=== PATIENT | male | born 1965 | race African-American/Black ===

== ENCOUNTER 2019-02-03 05:56 | Inpatient (IN) | payer MEDICAID ==
[~2019-02-03] VITALS: Ht 185.4 cm; Wt 115.2 kg
[2019-02-03] VITALS (29 sets, daily range): BP systolic 103–157; BP diastolic 59–111
[2019-02-03] MEDS ORDERED: DIPHENHYDRAMINE 50MG/ML VIAL IV ONE (06:15)
[2019-02-03] MEDS ORDERED: FAMOTIDINE 20MG/2ML VIAL IV ONE (06:15)
[2019-02-03] MEDS ORDERED: METHYLPREDNISOLONE SOD SUCC 125 MG/2 ML VIAL IV ONE (06:15)
[2019-02-03] MEDS ORDERED: EPINEPHRINE 1:1000 1 MG/ML AMP IM ONE (06:15)
[2019-02-03 07:16] LABS: BASOPHILS % 1.2 % (0.0-2.0); EOSINOPHILS % 0.8 % (0.0-5.0); HEMOGLOBIN. 16.2 g/dL (14.0-18.0); LYMPHOCYTES % 32.5 % (20.0-50.0); MEAN CORPUSCULAR HEMOGLOBIN 33.4 pg (28.0-32.0); MEAN CORPUSCULAR VOLUME 100.7 fL (80.0-94.0); MEAN PLATELET VOLUME 8.3 fl (7.4-10.4); MONOCYTES % 8.5 % (2.0-8.0); PLATELET 419 x1000/uL (130-400); RED BLOOD CELL COUNT 4.87 mill/uL (4.7-6.1); RED CELL DISTRIBUTION WIDTH 13.5 % (11.6-14.6)
[2019-02-03 07:42] LABS: CHLORIDE 109 mEq/L (98-107)
[2019-02-03 07:43] LABS: INR 0.9; PROTHROMBIN TIME 9.3 sec (9.6-11.0)
[2019-02-03] MEDS ORDERED: KETAMINE HCL 50 MG/ML 10ML IV ONE (08:30)
[2019-02-03] MEDS ORDERED: SUCCINYLCHOLINE CHLORIDE 200MG/10ML IV ONE ×2 (08:30→08:51)
[2019-02-03] MEDS ORDERED: FENTANYL CITRATE/PF 500 MCG in SODIUM CHLORIDE 0.9% 40 ML IV STA (08:44)
[2019-02-03] MEDS ORDERED: MIDAZOLAM HCL 50 MG in DEXTROSE 5% WATER 40 ML IV ONE (08:45)
[2019-02-03] MEDS ORDERED: LIDOCAINE HCL/PF 1% 2ML VIAL INFIL ONE (08:45)
[2019-02-03] MEDS ORDERED: ETOMIDATE 2MG/ML 10ML VIAL IV ONE (08:51)
[2019-02-03] MEDS ORDERED: FENTANYL CITRATE/PF 500 MCG in SODIUM CHLORIDE 0.9% 40 ML IV SCH (09:00)
[2019-02-03] MEDS ORDERED: MIDAZOLAM HCL 50 MG in DEXTROSE 5% WATER 40 ML IV SCH ×4 (09:00)
[2019-02-03] MEDS ORDERED: MIDAZOLAM HCL 2 MG/2 ML VIAL IV ONE (09:00)
[2019-02-03] MEDS ORDERED: FENTANYL CITRATE/PF 50MCG/ML 2ML VIAL ONE (09:14)
[2019-02-03] MEDS ORDERED: FENTANYL CITRATE/PF 50MCG/ML 2ML VIAL IV ONE (09:15)
[2019-02-03] MEDS ORDERED: ACETAMINOPHEN 650MG SUPP PR PRN (09:45)
[2019-02-03] MEDS ORDERED: DOCUSATE SODIUM 100MG CAPSULE PO PRN (09:45)
[2019-02-03] MEDS ORDERED: MAGNESIUM/ALUMINUM HYDROXIDE/SIMETHICONE 30ML UDC PO PRN (09:45)
[2019-02-03] MEDS ORDERED: ONDANSETRON HCL 4MG/2ML INJ IV PRN (09:45)
[2019-02-03] MEDS ORDERED: GUAIFENESIN 200MG/10ML SUGAR FREE UDC PO PRN (09:45)
[2019-02-03 09:52] LABS: BG BASE EXCESS -3.9 mmol/L (-2.0-2.0); BG CARBOXYHEMOGLOBIN 1.4 % (0.5-1.5); BG DEOXYHEMOGLOBIN 0.4 % (0.0-5.0); BG FRACTION INSPIRED OXYGEN 100; BG HCO3 ACT 22.2 mmol/L (22.0-26.0); BG METHEMOGLOBIN 0.3 % (0.0-1.5); BG OXYGEN SATURATION 99.6 % (92.0-98.5); BG OXYHEMOGLOBIN 97.9 % (94.0-97.0); BG PCO2 43.6 mmHg (35.0-45.0); BG PH 7.324 (7.350-7.450); BG PO2 476.6 mmHg (75.0-100.0); BG SAMPLE SITE LEFT BRACHIAL; BG TIDAL VOLUME(mL) 500 mL; BG TOTAL HEMOGLOBIN 16.1 g/dL (12.0-18.0); BG VENT MODE VENT - A/C; BG VENT RATE 12 set
[2019-02-03 10:41] LABS: PHOSPHORUS 3.6 mg/dL (2.5-4.9)
[2019-02-03] MEDS ORDERED: PROPOFOL 10MG/ML 100ML 100 ML IV ONE (11:00)
[2019-02-03] MEDS ORDERED: IPRATROPIUM/ALBUTEROL 0.5-3(2.5)MG/3ML NEB HHN PRN (11:00)
[2019-02-03] MEDS ORDERED: ENOXAPARIN 30MG/0.3ML SYR SUBCUT SCH (12:30)
[2019-02-03] MEDS: METHYLPREDNISOLONE SOD SUCC 125 MG/2 ML VIAL IV SCH ×2 (14:13→21:20)
[2019-02-03] MEDS: DIPHENHYDRAMINE 50MG/ML VIAL IV SCH ×2 (14:22→18:17)
[2019-02-03] MEDS: ENOXAPARIN 30MG/0.3ML SYR SUBCUT SCH ×2 (14:25→21:21)
[2019-02-03 15:25] LABS: CREATINE KINASE MB FRACTION 1.6 ng/mL (0.5-3.6)
[2019-02-03] MEDS: PROPOFOL 10MG/ML 100ML 100 ML IV PRN ×5 (16:01→23:56)
[2019-02-03] MEDS: IPRATROPIUM/ALBUTEROL 0.5-3(2.5)MG/3ML NEB HHN SCH (20:43)
[2019-02-03] MEDS: FAMOTIDINE 20MG/2ML VIAL IV SCH (21:22)
[2019-02-03 23:20] LABS: BG BASE EXCESS -2.1 mmol/L (-2.0-2.0); BG CARBOXYHEMOGLOBIN 0.3 % (0.5-1.5); BG DEOXYHEMOGLOBIN 4.9 % (0.0-5.0); BG FRACTION INSPIRED OXYGEN 40; BG HCO3 ACT 22.8 mmol/L (22.0-26.0); BG METHEMOGLOBIN 0.2 % (0.0-1.5); BG OXYGEN SATURATION 95.1 % (92.0-98.5); BG OXYHEMOGLOBIN 94.6 % (94.0-97.0); BG PCO2 39.7 mmHg (35.0-45.0); BG PH 7.377 (7.350-7.450); BG PO2 76.9 mmHg (75.0-100.0); BG SAMPLE SITE RIGHT RADIAL; BG TIDAL VOLUME(mL) 500 mL; BG VENT MODE VENT - A/C; BG VENT RATE 12 set
[2019-02-04] VITALS (63 sets, daily range): BP systolic 104–141; BP diastolic 61–99
[2019-02-04] MEDS: LORAZEPAM 2MG/ML CPJ IV PRN ×3 (00:10→12:55)
[2019-02-04] MEDS: DIPHENHYDRAMINE 50MG/ML VIAL IV SCH ×4 (00:39→17:40)
[2019-02-04 00:41] LABS: CREATINE KINASE 82 IU/L (39-308)
[2019-02-04] MEDS: FENTANYL CITRATE/PF 500 MCG in SODIUM CHLORIDE 0.9% 40 ML IV PRN ×4 (00:41→21:56)
[2019-02-04 00:42] LABS: CREATINE KINASE MB FRACTION < 1.0 ng/mL (0.5-3.6)
[2019-02-04] MEDS ORDERED: DEXTROSE 50% WATER 50ML SYRINGE IV PRN ×3 (01:15→23:00)
[2019-02-04] MEDS: PROPOFOL 10MG/ML 100ML 100 ML IV PRN ×4 (02:22→09:20)
[2019-02-04] MEDS: IPRATROPIUM/ALBUTEROL 0.5-3(2.5)MG/3ML NEB HHN SCH ×4 (02:22→19:43)
[2019-02-04 05:40] LABS: BASOPHILS % 0.5 % (0.0-2.0); HEMATOCRIT. 42.9 % (42.0-52.0); HEMOGLOBIN. 14.4 g/dL (14.0-18.0); LYMPHOCYTES % 10.2 % (20.0-50.0); MEAN CORPUSCULAR HEMOGLOBIN 33.9 pg (28.0-32.0); MEAN CORPUSCULAR VOLUME 100.9 fL (80.0-94.0); MEAN PLATELET VOLUME 8.1 fl (7.4-10.4); MONOCYTES % 4.4 % (2.0-8.0); NEUTROPHILS % 84.9 % (40.0-76.0); PLATELET 370 x1000/uL (130-400); RED BLOOD CELL COUNT 4.26 mill/uL (4.7-6.1); RED CELL DISTRIBUTION WIDTH 13.5 % (11.6-14.6)
[2019-02-04] MEDS ORDERED: BLOOD SUGAR DIAGNOSTIC STRIP TEST SCH ×2 (06:00)
[2019-02-04] MEDS: METHYLPREDNISOLONE SOD SUCC 125 MG/2 ML VIAL IV SCH ×3 (06:06→21:29)
[2019-02-04 06:18] LABS: CHLORIDE 108 mEq/L (98-107)
[2019-02-04 06:27] LABS: LDL CHOLESTEROL 125 mg/dL (5-100)
[2019-02-04 06:29] LABS: HDL CHOLESTEROL 52 mg/dL (40-59)
[2019-02-04 07:09] LABS: BG BASE EXCESS -0.6 mmol/L (-2.0-2.0); BG DEOXYHEMOGLOBIN 5.4 % (0.0-5.0); BG HCO3 ACT 25.2 mmol/L (22.0-26.0); BG METHEMOGLOBIN 0.2 % (0.0-1.5); BG OXYGEN SATURATION 94.5 % (92.0-98.5); BG OXYHEMOGLOBIN 93.4 % (94.0-97.0); BG PCO2 45.9 mmHg (35.0-45.0); BG PH 7.358 (7.350-7.450); BG PO2 73.9 mmHg (75.0-100.0); BG SAMPLE SITE RIGHT RADIAL; BG TIDAL VOLUME(mL) 500 mL; BG TOTAL HEMOGLOBIN 14.8 g/dL (12.0-18.0); BG VENT MODE VENT - A/C; BG VENT RATE 12 set
[2019-02-04] MEDS ORDERED: INSULIN LISPRO 100 UNITS/ML SUBCUT SCH ×2 (08:20)
[2019-02-04] MEDS: FAMOTIDINE 20MG/2ML VIAL IV SCH ×2 (08:43→21:29)
[2019-02-04] MEDS: ENOXAPARIN 30MG/0.3ML SYR SUBCUT SCH ×2 (08:43→21:29)
[2019-02-04] MEDS: MIDAZOLAM HCL 100 MG in DEXT 5% WATER 80 ML IV PRN (15:06)
[2019-02-05] VITALS (106 sets, daily range): BP systolic 75–178; BP diastolic 58–130
[2019-02-05] MEDS: DIPHENHYDRAMINE 50MG/ML VIAL IV SCH ×3 (00:15→12:07)
[2019-02-05] MEDS: LORAZEPAM 2MG/ML CPJ IV PRN ×9 (00:15→23:27)
[2019-02-05] MEDS: BLOOD SUGAR DIAGNOSTIC STRIP TEST SCH ×4 (00:32→17:24)
[2019-02-05] MEDS: MIDAZOLAM HCL 100 MG in DEXT 5% WATER 80 ML IV PRN ×3 (01:29→18:53)
[2019-02-05] MEDS: FENTANYL CITRATE/PF 500 MCG in SODIUM CHLORIDE 0.9% 40 ML IV PRN ×4 (03:29→22:20)
[2019-02-05] MEDS: IPRATROPIUM/ALBUTEROL 0.5-3(2.5)MG/3ML NEB HHN SCH ×5 (03:37→20:17)
[2019-02-05] MEDS: METHYLPREDNISOLONE SOD SUCC 125 MG/2 ML VIAL IV SCH ×3 (05:47→22:50)
[2019-02-05 05:53] LABS: BASOPHILS % 0.1 % (0.0-2.0); EOSINOPHILS % 0.2 % (0.0-5.0); HEMOGLOBIN. 14.4 g/dL (14.0-18.0); LYMPHOCYTES % 8.6 % (20.0-50.0); MEAN CORPUSCULAR HEMOGLOBIN 34.4 pg (28.0-32.0); MEAN CORPUSCULAR VOLUME 100.7 fL (80.0-94.0); MEAN PLATELET VOLUME 8.3 fl (7.4-10.4); MONOCYTES % 9.8 % (2.0-8.0); NEUTROPHILS % 81.3 % (40.0-76.0); PLATELET 390 x1000/uL (130-400); RED BLOOD CELL COUNT 4.17 mill/uL (4.7-6.1); RED CELL DISTRIBUTION WIDTH 13.6 % (11.6-14.6)
[2019-02-05 05:56] LABS: CHLORIDE 106 mEq/L (98-107)
[2019-02-05] MEDS: INSULIN LISPRO 100 UNITS/ML SUBCUT SCH ×4 (06:00→17:24)
[2019-02-05] MEDS: FAMOTIDINE 20MG/2ML VIAL IV SCH ×2 (08:39→22:50)
[2019-02-05] MEDS: ENOXAPARIN 30MG/0.3ML SYR SUBCUT SCH ×2 (08:39→22:50)
[2019-02-05] MEDS: ACETYLCYSTEINE 100MG/ML 10% VIAL 4ML INH SCH (11:22)
[2019-02-05] MEDS ORDERED: EPINEPHRINE 1:1000 1 MG/ML AMP INJ NR (14:00)
[2019-02-05] MEDS: DIPHENHYDRAMINE 50MG/ML VIAL IV PRN ×2 (19:01→23:26)
[2019-02-06] VITALS (64 sets, daily range): BP systolic 124–213; BP diastolic 75–132
[2019-02-06] MEDS: INSULIN LISPRO 100 UNITS/ML SUBCUT SCH ×5 (00:30→23:12)
[2019-02-06] MEDS: BLOOD SUGAR DIAGNOSTIC STRIP TEST SCH ×5 (00:30→23:11)
[2019-02-06] MEDS: ACETYLCYSTEINE 100MG/ML 10% VIAL 4ML INH SCH ×3 (00:46→15:50)
[2019-02-06] MEDS: IPRATROPIUM/ALBUTEROL 0.5-3(2.5)MG/3ML NEB HHN SCH ×6 (00:46→20:01)
[2019-02-06] MEDS: FENTANYL CITRATE/PF 500 MCG in SODIUM CHLORIDE 0.9% 40 ML IV PRN ×2 (03:42→08:13)
[2019-02-06] MEDS: DIPHENHYDRAMINE 50MG/ML VIAL IV PRN ×2 (04:11→23:52)
[2019-02-06] MEDS: LORAZEPAM 2MG/ML CPJ IV PRN ×7 (04:11→23:11)
[2019-02-06] MEDS: MIDAZOLAM HCL 100 MG in DEXT 5% WATER 80 ML IV PRN (05:56)
[2019-02-06] MEDS: METHYLPREDNISOLONE SOD SUCC 125 MG/2 ML VIAL IV SCH ×3 (06:09→21:11)
[2019-02-06 06:10] LABS: BASOPHILS % 0.1 % (0.0-2.0); HEMATOCRIT. 42.4 % (42.0-52.0); HEMOGLOBIN. 14.3 g/dL (14.0-18.0); LYMPHOCYTES % 8.3 % (20.0-50.0); MEAN CORPUSCULAR HEMOGLOBIN 34.1 pg (28.0-32.0); MEAN CORPUSCULAR VOLUME 101.1 fL (80.0-94.0); MEAN PLATELET VOLUME 8.6 fl (7.4-10.4); MONOCYTES % 8.8 % (2.0-8.0); NEUTROPHILS % 82.8 % (40.0-76.0); PLATELET 398 x1000/uL (130-400)
[2019-02-06 06:35] LABS: CHLORIDE 104 mEq/L (98-107)
[2019-02-06 07:29] LABS: BG BASE EXCESS 4.6 mmol/L (-2.0-2.0); BG CARBOXYHEMOGLOBIN 1.2 % (0.5-1.5); BG DEOXYHEMOGLOBIN 5.9 % (0.0-5.0); BG FRACTION INSPIRED OXYGEN 60; BG HCO3 ACT 29.7 mmol/L (22.0-26.0); BG METHEMOGLOBIN 0.1 % (0.0-1.5); BG OXYHEMOGLOBIN 92.8 % (94.0-97.0); BG PCO2 45.3 mmHg (35.0-45.0); BG PH 7.434 (7.350-7.450); BG PO2 68.1 mmHg (75.0-100.0); BG SAMPLE SITE RIGHT RADIAL; BG TIDAL VOLUME(mL) 600 mL; BG VENT MODE VENT - A/C; BG VENT RATE 12 set
[2019-02-06] MEDS: FAMOTIDINE 20MG/2ML VIAL IV SCH ×2 (08:11→21:11)
[2019-02-06] MEDS: ENOXAPARIN 30MG/0.3ML SYR SUBCUT SCH ×2 (08:12→21:11)
[2019-02-06 11:09] LABS: BG BASE EXCESS 5.3 mmol/L (-2.0-2.0); BG CARBOXYHEMOGLOBIN 0.6 % (0.5-1.5); BG DEOXYHEMOGLOBIN 9.4 % (0.0-5.0); BG FRACTION INSPIRED OXYGEN 50; BG HCO3 ACT 30.2 mmol/L (22.0-26.0); BG METHEMOGLOBIN 0.2 % (0.0-1.5); BG OXYGEN SATURATION 90.5 % (92.0-98.5); BG OXYHEMOGLOBIN 89.8 % (94.0-97.0); BG PCO2 44.9 mmHg (35.0-45.0); BG PH 7.445 (7.350-7.450); BG PO2 59.7 mmHg (75.0-100.0); BG PRESSURE SUPPORT 8; BG SAMPLE SITE RIGHT RADIAL; BG TOTAL HEMOGLOBIN 15.3 g/dL (12.0-18.0); BG VENT MODE VENT - CPAP
[2019-02-06] MEDS ORDERED: RACEPINEPHRINE 2.25% 0.5ML NEB VIAL HHN PRN (11:45)
[2019-02-06] MEDS ORDERED: RACEPINEPHRINE 2.25% 0.5ML NEB VIAL HHN ONE (13:00)
[2019-02-06 15:46] LABS: BG BASE EXCESS 5.8 mmol/L (-2.0-2.0); BG BILEVEL POS AIRWAY PRESSURE 15/5; BG CARBOXYHEMOGLOBIN 0.8 % (0.5-1.5); BG DEOXYHEMOGLOBIN 2.6 % (0.0-5.0); BG FRACTION INSPIRED OXYGEN 70; BG HCO3 ACT 29.5 mmol/L (22.0-26.0); BG METHEMOGLOBIN 0.3 % (0.0-1.5); BG OXYGEN SATURATION 97.4 % (92.0-98.5); BG OXYHEMOGLOBIN 96.3 % (94.0-97.0); BG PCO2 39.7 mmHg (35.0-45.0); BG PH 7.489 (7.350-7.450); BG PO2 93.3 mmHg (75.0-100.0); BG SAMPLE SITE RIGHT BRACHIAL; BG TOTAL HEMOGLOBIN 15.6 g/dL (12.0-18.0); BG VENT MODE MASK - BIPAP
[2019-02-06] MEDS ORDERED: HALOPERIDOL 1MG TABLET PO PRN (16:00)
[2019-02-06] MEDS ORDERED: LORAZEPAM 2MG/ML CPJ ONE (16:03)
[2019-02-06] MEDS ORDERED: MORPHINE SULFATE 4 MG/ML CPJ (NOT FOR IM USE) IV ONE (16:04)
[2019-02-06] MEDS ORDERED: HALOPERIDOL LACTATE 5MG/ML VIAL IM PRN (16:15)
[2019-02-06] MEDS ORDERED: LORAZEPAM 2MG/ML CPJ IV NR (16:18)
[2019-02-06] MEDS ORDERED: HALOPERIDOL LACTATE 5MG/ML VIAL IM NR (16:20)
[2019-02-07] VITALS (19 sets, daily range): BP systolic 121–175; BP diastolic 79–121
[2019-02-07] MEDS: IPRATROPIUM/ALBUTEROL 0.5-3(2.5)MG/3ML NEB HHN SCH ×6 (00:01→20:30)
[2019-02-07] MEDS: ACETYLCYSTEINE 100MG/ML 10% VIAL 4ML INH SCH ×4 (00:02→16:37)
[2019-02-07] MEDS: LORAZEPAM 2MG/ML CPJ IV PRN ×3 (00:54→05:28)
[2019-02-07 05:19] LABS: BASOPHILS % 0.2 % (0.0-2.0); HEMATOCRIT. 44.2 % (42.0-52.0); HEMOGLOBIN. 14.9 g/dL (14.0-18.0); LYMPHOCYTES % 9.2 % (20.0-50.0); MEAN CORPUSCULAR HEMOGLOBIN 33.7 pg (28.0-32.0); MEAN CORPUSCULAR VOLUME 99.8 fL (80.0-94.0); MEAN PLATELET VOLUME 8.4 fl (7.4-10.4); NEUTROPHILS % 79.6 % (40.0-76.0); PLATELET 403 x1000/uL (130-400); RED BLOOD CELL COUNT 4.43 mill/uL (4.7-6.1); RED CELL DISTRIBUTION WIDTH 13.1 % (11.6-14.6)
[2019-02-07 05:26] LABS: CHLORIDE 104 mEq/L (98-107)
[2019-02-07] MEDS: METHYLPREDNISOLONE SOD SUCC 125 MG/2 ML VIAL IV SCH ×3 (05:32→21:02)
[2019-02-07] MEDS: INSULIN LISPRO 100 UNITS/ML SUBCUT SCH ×3 (05:59→18:00)
[2019-02-07] MEDS: BLOOD SUGAR DIAGNOSTIC STRIP TEST SCH ×3 (05:59→18:00)
[2019-02-07] MEDS: CLONIDINE 0.1MG TABLET PO PRN ×2 (08:04→15:02)
[2019-02-07] MEDS: FAMOTIDINE 20MG/2ML VIAL IV SCH ×2 (08:04→20:57)
[2019-02-07] MEDS: ENOXAPARIN 30MG/0.3ML SYR SUBCUT SCH ×2 (08:04→20:58)
[2019-02-07 09:13] LABS: BG BASE EXCESS 5.9 mmol/L (-2.0-2.0); BG DEOXYHEMOGLOBIN 7.8 % (0.0-5.0); BG FRACTION INSPIRED OXYGEN 40; BG HCO3 ACT 29.3 mmol/L (22.0-26.0); BG OXYGEN SATURATION 92.1 % (92.0-98.5); BG OXYHEMOGLOBIN 91.2 % (94.0-97.0); BG PCO2 38.4 mmHg (35.0-45.0); BG PH 7.501 (7.350-7.450); BG SAMPLE SITE RIGHT RADIAL; BG TOTAL HEMOGLOBIN 15.6 g/dL (12.0-18.0); BG VENT MODE NASAL CANNULA
[2019-02-07 10:11] LABS: C1 ESTERASE INHIBITOR 46 mg/dL (21-39)
[2019-02-07 13:15] LABS: C1 ESTERASE INHIBITOR FUNCTNL > 92 (.)
[2019-02-08] VITALS (8 sets, daily range): BP systolic 127–144; BP diastolic 82–91
[2019-02-08] MEDS: BLOOD SUGAR DIAGNOSTIC STRIP TEST SCH ×2 (00:55→05:32)
[2019-02-08] MEDS: METHYLPREDNISOLONE SOD SUCC 125 MG/2 ML VIAL IV SCH ×2 (05:28→14:13)
[2019-02-08] MEDS: INSULIN LISPRO 100 UNITS/ML SUBCUT SCH ×2 (05:32)
[2019-02-08 06:41] LABS: CHLORIDE 100 mEq/L (98-107)
[2019-02-08 06:50] LABS: BASOPHILS % 0.2 % (0.0-2.0); HEMATOCRIT. 42.8 % (42.0-52.0); HEMOGLOBIN. 14.4 g/dL (14.0-18.0); LYMPHOCYTES % 11.7 % (20.0-50.0); MEAN CORPUSCULAR HEMOGLOBIN 33.6 pg (28.0-32.0); MEAN CORPUSCULAR VOLUME 100.3 fL (80.0-94.0); MEAN PLATELET VOLUME 8.8 fl (7.4-10.4); MONOCYTES % 7.8 % (2.0-8.0); NEUTROPHILS % 80.3 % (40.0-76.0); PLATELET 415 x1000/uL (130-400); RED BLOOD CELL COUNT 4.27 mill/uL (4.7-6.1); RED CELL DISTRIBUTION WIDTH 13.1 % (11.6-14.6)
[2019-02-08] MEDS: FAMOTIDINE 20MG/2ML VIAL IV SCH (09:38)
[2019-02-08] MEDS: ENOXAPARIN 30MG/0.3ML SYR SUBCUT SCH (09:38)
[2019-02-08] MEDS: IPRATROPIUM/ALBUTEROL 0.5-3(2.5)MG/3ML NEB HHN SCH ×2 (12:44)
[2019-02-08] MEDS ORDERED: PNEUMOCOCCAL 23-VAL P-SAC VAC 0.5 ML IM ONE (14:00)
== END 2019-02-08 14:41 | disposition home or self-care (01) | DRG 133 ==
LOC: ER 05:56 → CVICU 09:14 → EDBEDREQ 09:20 → ENRESERV 09:50 → 5EST 02-07 12:20
PROVIDERS: ADMIT Internal Medicine; ATTEND Internal Medicine
PROC: 5A1945Z Respiratory Ventilation, 24-96 Consecutive Hours (ICD-10-PCS; principal; 2019-02-03)
PROC: 30233P1 Transfusion of Nonautologous Frozen Red Cells into Peripheral Vein, Percutaneous Approach (ICD-10-PCS; 2019-02-03)
PROC: 0BH17EZ Insertion of Endotracheal Airway into Trachea, Via Natural or Artificial Opening (ICD-10-PCS; 2019-02-03)
PROC: 5A09357 Assistance with Respiratory Ventilation, Less than 24 Consecutive Hours, Continuous Positive Airway Pressure (ICD-10-PCS; 2019-02-06)
DX: J96.00 Acute respiratory failure, unspecified whether with hypoxia or hypercapnia (principal); R13.10 Dysphagia, unspecified; T78.3XXA Angioneurotic edema, initial encounter; I10 Essential (primary) hypertension; E78.5 Hyperlipidemia, unspecified; E11.9 Type 2 diabetes mellitus without complications; E78.00 Pure hypercholesterolemia, unspecified; F17.210 Nicotine dependence, cigarettes, uncomplicated; M10.9 Gout, unspecified; E78.1 Pure hyperglyceridemia; Z78.1 Physical restraint status
CPT/HCPCS: 31500; 36415; 36600; 71045; 80048; 80061; 82375; 82550; 82553; 82805; 82962; 83036; 83735; 84100; 84443; 86161; 86850; 86900; 86927; 87070; 90732; 92610; 93970; 94003; 94640; 94660; 96365; 96368; 96372; 96375; 97162; 97166; 99291; J0330; J1200; J1630; J1650; J2060; J2250; J2270; J2704; J2930; J3010; J3490; J7040; J7050; J7060; J7608; J7620; P9017; A4315

== ENCOUNTER 2019-03-09 18:04 | Emergency (ER) | payer MEDICAID ==
[~2019-03-09] VITALS: Ht 185.4 cm; Wt 118.0 kg
[2019-03-09] MEDS ORDERED: FAMOTIDINE 20MG/2ML VIAL IV ONE (19:30)
[2019-03-09] MEDS ORDERED: METHYLPREDNISOLONE SOD SUCC 125 MG/2 ML VIAL IV ONE (19:30)
[2019-03-09] MEDS ORDERED: DIPHENHYDRAMINE 50MG/ML VIAL IV ONE (19:30)
[2019-03-09] MEDS ORDERED: TRANEXAMIC ACID 1,000 MG/10 ML IV ONE (19:30)
[2019-03-09] MEDS ORDERED: TRANEXAMIC ACID 1,000 MG in SODIUM CHLORIDE 0.9% 100 ML IV NR (20:45)
[2019-03-09 22:16] VITALS: BP 139/89
== END 2019-03-09 22:19 | disposition home or self-care (01) ==
LOC: ER 19:13
DX: T78.3XXA Angioneurotic edema, initial encounter (principal); T46.4X5A Adverse effect of angiotensin-converting-enzyme inhibitors, initial encounter; I10 Essential (primary) hypertension; F17.200 Nicotine dependence, unspecified, uncomplicated; F12.10 Cannabis abuse, uncomplicated; Z88.8 Allergy status to other drugs, medicaments and biological substances
CPT/HCPCS: 93005; 96365; 96375; 99291; J1200; J2930; J3490; J7050

== ENCOUNTER 2019-03-10 07:27 | Emergency (ER) | payer MEDICAID ==
[~2019-03-10] VITALS: Ht 185.4 cm; Wt 118.0 kg
[2019-03-10] MEDS ORDERED: FAMOTIDINE 20MG/2ML VIAL IV ONE (08:00)
[2019-03-10] MEDS ORDERED: METHYLPREDNISOLONE SOD SUCC 125 MG/2 ML VIAL IV ONE (08:00)
[2019-03-10] MEDS ORDERED: DIPHENHYDRAMINE 50MG/ML VIAL IV ONE (08:00)
[2019-03-10 10:01] VITALS: BP 142/96
== END 2019-03-10 10:05 | disposition home or self-care (01) ==
LOC: ER 07:27
DX: T78.3XXA Angioneurotic edema, initial encounter (principal); X58.XXXA Exposure to other specified factors, initial encounter; I10 Essential (primary) hypertension; F17.200 Nicotine dependence, unspecified, uncomplicated
CPT/HCPCS: 96374; 96375; 99283; J1200; J2930; J3490

== ENCOUNTER 2019-10-31 02:08 | Emergency (ER) | payer MEDICAID ==
[~2019-10-31] VITALS: Ht 185.4 cm; Wt 118.0 kg
[2019-10-31] MEDS ORDERED: KETOROLAC 60MG/2ML VIAL IM STA (04:19)
[2019-10-31] MEDS ORDERED: METHYLPREDNISOLONE SOD SUCC 125 MG/2 ML VIAL IM STA (04:19)
[2019-10-31 05:24] VITALS: BP 135/88
== END 2019-10-31 05:42 | disposition home or self-care (01) ==
LOC: ER 02:08
DX: M25.532 Pain in left wrist (principal); M10.9 Gout, unspecified; Z88.8 Allergy status to other drugs, medicaments and biological substances
CPT/HCPCS: 73110; 96372; 99283; J1885; J2930

== ENCOUNTER 2022-09-30 13:55 | Emergency (ER) | payer MEDICAID ==
[~2022-09-30] VITALS: Ht 172.7 cm; Wt 90.0 kg
[2022-09-30 14:23] VITALS: BP 147/99
[2022-09-30 18:40] LABS: BASOPHILS % 0.6 % (0.0-2.0); HEMATOCRIT. 48.5 % (42.0-52.0); HEMOGLOBIN. 16.8 g/dL (14.0-18.0); MEAN CORPUSCULAR HEMOGLOBIN 34.4 pg (28.0-32.0); MEAN CORPUSCULAR VOLUME 99.5 fL (80.0-94.0); MEAN PLATELET VOLUME 7.2 fl (7.4-10.4); MONOCYTES % 10.7 % (2.0-8.0); NEUTROPHILS % 53.7 % (40.0-76.0); PLATELET 419 x1000/uL (130-400); RED BLOOD CELL COUNT 4.88 mill/uL (4.7-6.1); RED CELL DISTRIBUTION WIDTH 13.6 % (11.6-14.6)
[2022-09-30] MEDS ORDERED: IBUPROFEN 600MG TABLET PO ONE (18:45)
[2022-09-30 18:50] LABS: INR 0.9; PROTHROMBIN TIME 9.9 sec (9.6-11.0)
[2022-09-30 18:53] LABS: CHLORIDE 100 mEq/L (98-107)
[2022-09-30] MEDS ORDERED: POTASSIUM CHLORIDE 20MEQ TABLET SR PO ONE (19:30)
[2022-09-30] MEDS ORDERED: IBUP-2029 MT (21:13)
[2022-09-30] MEDS ORDERED: IBUPROFEN 600MG TABLET PO NR (21:30)
[2022-09-30] MEDS ORDERED: POTASSIUM CHLORIDE 20MEQ TABLET SR PO NR (21:30)
== END 2022-09-30 21:29 | disposition home or self-care (01) ==
LOC: ER 13:55
DX: R60.0 Localized edema (principal); E87.6 Hypokalemia; I10 Essential (primary) hypertension
CPT/HCPCS: 36415; 80053; 85025; 93970; 99284

== ENCOUNTER 2023-12-04 12:34 | Emergency (ER) | payer OTHER ==
[~2023-12-04] VITALS: Ht 182.9 cm; Wt 105.0 kg
[~2023-12-04 12:34] MED LIST: IBUP-2029 MT
[2023-12-04 12:45] VITALS: O2SAT 94
[2023-12-04] MEDS: PREDNISONE 20MG TABLET PO ONE (13:21)
[2023-12-04] MEDS: IBUPROFEN 400MG TABLET PO NR (13:21)
[2023-12-04] MEDS: IBUPROFEN 800MG TABLET PO ONE (13:22)
[2023-12-04] MEDS ORDERED: COLC0.6C3 MT (14:43)
[2023-12-04] MEDS ORDERED: TOPUD MT (14:43)
[2023-12-04] MEDS ORDERED: IBUP-1525 MT (14:43)
[2023-12-04] MEDS ORDERED: P50 MT (14:43)
[2023-12-04 16:04] VITALS: BP 122/67; PULSE 107; RESP 18; TEMP 98.6
== END 2023-12-04 16:05 | disposition home or self-care (01) ==
LOC: ER 12:34
DX: M10.9 Gout, unspecified (principal); I10 Essential (primary) hypertension; Z88.8 Allergy status to other drugs, medicaments and biological substances
CPT/HCPCS: 99283; J7512; Z7610

== ENCOUNTER 2024-08-13 02:57 | Emergency (ER) | payer OTHER ==
[~2024-08-13] VITALS: Ht 170.2 cm; Wt 114.0 kg
[~2024-08-13 02:57] MED LIST changes: +ALLO100T MT; +AMLO10TA4 MT; +AMLO10TA4 PO; +COLC0.6C3 MT; +IBUP-1525 MT; +P50 MT; +TOPUD MT
[2024-08-13 03:12] VITALS: O2SAT 96
[2024-08-13] MEDS: HYDROCODONE/ACETAMINOPHEN 5/325MG TABLET PO ONE (04:15)
[2024-08-13] MEDS: KETOROLAC 30MG/ML VIAL IM ONE (04:15)
[2024-08-13 05:10] VITALS: BP 127/75; PULSE 103; RESP 20; TEMP 36.55848; O2SAT 95
[2024-08-13] MEDS ORDERED: ALLO100T MT (05:21)
[2024-08-13] MEDS ORDERED: HYDR-4001 MT (05:21)
[2024-08-13] MEDS ORDERED: AMLO10TA4 PO (17:48)
[2024-08-14] MEDS ORDERED: ALLO100T MT (11:30)
[2024-08-14] MEDS ORDERED: P20 MT (11:30)
== END 2024-08-13 06:12 | disposition home or self-care (01) ==
LOC: ER 02:57
DX: M10.9 Gout, unspecified (principal); D17.22 Benign lipomatous neoplasm of skin and subcutaneous tissue of left arm; I10 Essential (primary) hypertension; F10.20 Alcohol dependence, uncomplicated; Z79.899 Other long term (current) drug therapy; Y90.9 Presence of alcohol in blood, level not specified
CPT/HCPCS: 99283; 82962; 96372; J1885

== ENCOUNTER 2025-04-04 12:52 | Emergency (ER) | payer OTHER ==
[~2025-04-04] VITALS: Ht 188 cm; Wt 104.0 kg
[~2025-04-04 12:52] MED LIST changes: +AMLO-905 MT; -AMLO10TA4 MT; -AMLO10TA4 PO; +ASPI-1160 PO; +AZIT500T8 MT; +HYDR-4001 MT; -IBUP-1525 MT; -IBUP-2029 MT; -P50 MT
[2025-04-04 13:16] VITALS: O2SAT 94
[2025-04-04] MEDS: PREDNISONE 20MG TABLET PO ONE (16:05)
[2025-04-04] MEDS: KETOROLAC 15MG/ML VIAL IM ONE (16:06)
[2025-04-04] MEDS ORDERED: P20 PO (16:08)
[2025-04-04] MEDS ORDERED: NAPR-681 MT (16:08)
[2025-04-04 16:28] VITALS: BP 153/97; PULSE 101; RESP 14; TEMP 37.2; O2SAT 98
== END 2025-04-04 16:28 | disposition home or self-care (01) ==
LOC: ER 12:58
DX: M10.9 Gout, unspecified (principal); M25.561 Pain in right knee; I10 Essential (primary) hypertension; F14.90 Cocaine use, unspecified, uncomplicated; Z79.1 Long term (current) use of non-steroidal anti-inflammatories (NSAID); Z79.82 Long term (current) use of aspirin; Z79.899 Other long term (current) drug therapy
CPT/HCPCS: 99283; 73562; 96372; J1885; J7512

== ENCOUNTER 2025-04-14 13:54 | Emergency (ER) | payer OTHER ==
[~2025-04-14] VITALS: Ht 180.3 cm; Wt 105.0 kg
[~2025-04-14 13:54] MED LIST changes: +NAPR-681 MT; +P20 PO
[2025-04-14 14:06] VITALS: O2SAT 95
[2025-04-14] MEDS: TETANUS, DIPHTHERIA, PERTUSSIS VAC/PF 0.5ML (>10YR OLD) IM ONE (14:46)
[2025-04-14] MEDS ORDERED: IBUP-2029 MT (15:14)
[2025-04-14 15:39] VITALS: BP 133/81; PULSE 98; RESP 16; TEMP 36.7; O2SAT 98
== END 2025-04-14 15:43 | disposition home or self-care (01) ==
LOC: ER 13:54
DX: S01.01XA Laceration without foreign body of scalp, initial encounter (principal); S06.0XAA Concussion with loss of consciousness status unknown, initial encounter; I10 Essential (primary) hypertension; F14.90 Cocaine use, unspecified, uncomplicated; Z79.899 Other long term (current) drug therapy; X58.XXXA Exposure to other specified factors, initial encounter; Y93.89 Activity, other specified; Y92.89 Other specified places as the place of occurrence of the external cause; Y99.8 Other external cause status
CPT/HCPCS: 70450; 90715; 12002; 90471; 99285; Z7610 ×2

== ENCOUNTER 2025-04-30 13:56 | Emergency (ER) | payer OTHER ==
[~2025-04-30] VITALS: Ht 177.8 cm; Wt 90.0 kg
[~2025-04-30 13:56] MED LIST changes: +IBUP-2029 MT
[2025-04-30 14:12] VITALS: TEMP 37.1; O2SAT 87
[2025-04-30 15:21] VITALS: BP 139/96; PULSE 101; RESP 14; O2SAT 92
== END 2025-04-30 15:29 | disposition home or self-care (01) ==
LOC: ER 13:56
DX: S01.91XD Laceration without foreign body of unspecified part of head, subsequent encounter (principal); F14.10 Cocaine abuse, uncomplicated; I49.9 Cardiac arrhythmia, unspecified; I10 Essential (primary) hypertension; Z48.02 Encounter for removal of sutures; Z79.899 Other long term (current) drug therapy; Z79.82 Long term (current) use of aspirin; X58.XXXD Exposure to other specified factors, subsequent encounter
CPT/HCPCS: 93005; 99283